=== PATIENT | female | born 1995 | race Caucasian/White ===

== ENCOUNTER 2021-10-08 19:41 | Emergency (ER) | payer OTHER, SELFPAY ==
--- NOTE | ~2021-10-08 | XR_ITS ---
EXAMINATION: XR ACROMIOCLAVICULAR JOINTS CLINICAL INFORMATION: Clavicular pain COMPARISON: 10/08/2021 TECHNIQUE: AP and cephalad angulated AP views of the acromioclavicular joints. Imaging with and without weights. FINDINGS: Alignment of the acromioclavicular joints is normal. Joint spaces are normal. The clavicles are intact. No fracture. The visualized lungs are clear. XR/XR AC joint BI IMPRESSION: Normal acromioclavicular joints.
--- NOTE | ~2021-10-08 | XR_ITS ---
Indication: Evaluate for dislocation EXAMINATION: Right shoulder, right clavicle. 3 views of the right shoulder show no fracture or dislocation. 2 views of the right clavicle does not demonstrate evidence for fracture. XR/XR shoulder RT min 2V IMPRESSION: No evidence for fracture of the right clavicle. No fracture or dislocation of the right shoulder.
--- NOTE | ~2021-10-08 | XR_ITS ---
Indication: Evaluate for dislocation EXAMINATION: Right shoulder, right clavicle. 3 views of the right shoulder show no fracture or dislocation. 2 views of the right clavicle does not demonstrate evidence for fracture. XR/XR clavicle RT IMPRESSION: No evidence for fracture of the right clavicle. No fracture or dislocation of the right shoulder.
[2021-10-08 20:00] VITALS: BP 153/91; PULSE 95; RESP 20; TEMP 36.3; O2SAT 96; BMI 37.4
[2021-10-08 22:12] VITALS: BP 151/93; PULSE 76; RESP 18; TEMP 36.5; O2SAT 100
[2021-10-08] MEDS: Acetaminophen 325 MG TABLET 650 MG PO (22:47)
--- NOTE | 2021-10-09 00:57 | ED_ITS ---
HPI - Extremity Problem General Chief complaint: Extremity Injury, Upper Stated complaint: ?right shoulder dislocation Time Seen by Provider: 10/09/21 00:37 Source: patient and family ( mother) Mode of arrival: ambulatory Limitations: no limitations History of Present Illness HPI Narrative: 26-year-old female with cutting [place] tree 4 days ago, felt a pop in the right shoulder/ clavicular area, patient has been having pain over the right clavicular region. Patient has no other injuries. MD Complaint: extremity pain Onset (ago): hour(s) (4) Pain Consistency: constant Location: right and upper extremity Severity scale (1-10): 10 Quality: aching Radiation: none Relieving factors: nothing Exacerbating factors: range of motion and weight bearing Associated symptoms: denies other symptoms Related Data Allergies Allergy/AdvReac Type Severity Reaction Status Date / Time codeine [CODEINE] Allergy Mild NAUSEA & Verified 10/08/21 22:47 VOMITING hydrocodone [HYDROCODONE] Allergy Mild NAUSEA Verified 10/08/21 22:47 sulfamethoxazole Allergy Mild RASH Verified 10/08/21 22:47 [From BACTRIM] trimethoprim [From BACTRIM] Allergy Mild RASH Verified 10/08/21 22:47 ketorolac [From Toradol] Allergy Unknown Verified 10/08/21 22:47 metoclopramide [From Reglan] Allergy Unknown Verified 10/08/21 22:47 prochlorperazine Allergy Unknown Verified 10/08/21 22:47 [From Compazine] Review of Systems Review of Systems: All other systems are reviewed and are negative Constitutional: Reports as per HPI and Reports no additional constitutional complaints Eyes: Reports as per HPI and Reports no additional eye complaints Reports system reviewed and no additional complaints, except as documented Cardiovascular: Reports as per HPI and Reports no additional cardiovascular complaints Respiratory: Reports as per HPI and Reports no additional respiratory complaints Gastrointestinal: Reports as per HPI and Reports no additional gastrointestinal complaints Genitourinary: Reports no additional female genitourinary complaints Musculoskeletal: Reports no additional musculoskeletal complaints Skin/Breast: Reports system reviewed and no additional complaints, except as docu Psychiatric: Reports no additional psychiatric complaints Endocrine: Reports no additional endocrine complaints Hematologic/Lymphatic: Reports no additional hematologic/lymphatic complaints Allergic/Immunologic: Reports no additional allergic/immunologic complaints Reports system reviewed and no additional complaints, except as documented and Reports Abnormal speech present [facility] Social History Social History Advance Directives: No Advance Directives Information Provided: No Physical Exam Vital Signs: Vital Signs: Last Vital Signs Temp 97.7 F 10/08/21 22:12 Pulse 76 10/08/21 22:12 Resp 18 10/08/21 22:12 BP 151/93 H 10/08/21 22:12 Pulse Ox 100 10/08/21 22:12 BMI result Body Mass Index 37.4 vital signs have been reviewed as appeared to be correct. Blood pressure normal. Heart rate normal. Respiration rate normal. Temperature normal. Oxygen saturation normal. Appearance: Alert. Oriented X3. No acute distress. Head: Normal external exam. Normocephalic. Atraumatic. No Chandra signs noted. No raccoon eyes noted Eyes: PERRLA. EOMI. Conjunctiva and sclera normal. Eyelids normal. ENT: TM's Normal. Pharynx normal. Uvula midline. Moist mucous membranes. No trismus noted. No drooling noted. No muffled voice noted. Neck: Normal inspection. Neck supple. FROM. No adenopathy. Thyroid Normal. No meningeal signs. No neck mass noted. CVS: Normal heart rate and rhythm. Heart sound normal. No murmurs noted. Pulses normal throughout. Respiratory: No respiratory distress. Painless inspiration. Breath sounds no rmal. No wheezes/rales/rhonchi noted. Chest nontender. No accessory muscle usage noted or decreased air movement noted. Abdomen: Soft and nontender. Bowel sounds normal in all 4 quadrants. No disten tion noted. No organomegaly noted. No visible injury noted. Back: No CVA tenderness. Full range of motion noted. Skin: Skin warm and dry. Normal skin color. Normal skin turgor. No rashes/lesions/lacerations noted. Extremities: Right shoulder held in adduction position, full range of motion with some tenderness especially with adduction. neurovascular intact. Neuro: Oriented X 3. Cranial nerve exam: II-XII are grossly intact No motor deficit. No sensory deficit. Reflexes normal. Course Course Course Narrative: Assessment and plan. Right shoulder/ right clavicular pain. No appreciation of AC separation clinically or on the x-ray. Provide the patient with right shoulder immobilizer, NSAIDs p.r.n. pain, follow- up with ortho. MDM - Extremity (Nontraumatic) Imaging Data Right shoulder x-ray: Attestation: I personally reviewed and interpreted this imaging study as follows: Radiologist's impression: ?No evidence for fracture of the right clavicle. No fracture or dislocation of the right shoulder.? right clavicle x-ray: Radiologist's impression: ?No evidence for fracture of the right clavicle. No fracture or dislocation of the right shoulder.? Discharge Plan Discharge Clinical Impression: Sprain of right shoulder Qualifiers: Encounter type: initial encounter Patient Disposition: Home, Self-Care Instructions: Shoulder Sprain (ED) Referrals: Oz Foster MD [Physician] - 2 days Gayathri Oliveros MD [Primary Care Provider] - 2 days Stand Alone Forms: Work/School Release
== END 2021-10-09 01:36 | disposition home or self-care (01) ==
PROVIDERS: Emergency Provider Emergency Medicine; PCP Internal Medicine
DX: S43.401A Unspecified sprain of right shoulder joint, initial encounter (principal); X50.0XXA Overexertion from strenuous movement or load, initial encounter; Y93.89 Activity, other specified; Y92.79 Other farm location as the place of occurrence of the external cause; Y99.8 Other external cause status
CPT/HCPCS: 73000; 73030; 73050; 99283; 99284